=== PATIENT | female | born 2000 | race Caucasian/White ===

== ENCOUNTER 2018-06-14 13:51 | Emergency (ER) | payer OTHER ==
[2018-06-14 14:14] VITALS: BP 129/77
== END 2018-06-14 16:13 | disposition left against medical advice (07) ==
LOC: ED 13:51
DX: R10.9 Unspecified abdominal pain (principal); Z53.21 Procedure and treatment not carried out due to patient leaving prior to being seen by health care provider
CPT/HCPCS: 99281